=== PATIENT | female | born 1990 | race Caucasian/White ===

== ENCOUNTER 2017-03-04 17:37 | Emergency (ER) | payer OTHER ==
[~2017-03-04] VITALS: Ht 157.5 cm; Wt 46.1 kg
[2017-03-04 17:59] VITALS: TEMP 37; Ht 157.5 cm; Wt 46.1 kg
[2017-03-04] MEDS ORDERED: PANADOL PO (18:39)
--- NOTE | 2017-03-04 18:41 | EMERGENCY ROOM VISIT NOTE ---
ED Visit Note First contact with patient: 18:09 CHIEF COMPLAINT: test HISTORY OF PRESENT ILLNESS: This 26-year-old female patient presents to the emergency department requesting a test. The patient states her period is approximately 2 weeks late. She does have a Copper IUD which she has had for approximately 3-1/2 years. The patient states she took a home test, was uncertain if it tested positive or if there may have been a problem with the test. The patient believes her last menstrual period may have started on approximately January 11. She states she does have abnormal period intervals consistently. Last week, the patient did experience some mild pelvic pain, constipation, and dizziness. She states she is not experiencing these symptoms now. The patient denies any abnormal vaginal bleeding, discharge, urinary complaints, fever, chills, nausea, vomiting. She does have 3 living children, and denies any miscarriages or abortions. The patient states she does not feel like she felt with her previous pregnancies. REVIEW OF SYSTEMS: A 10 system review of systems was performed with positives and pertinent negatives listed in the history of present illness. All other systems were reviewed and are negative. ALLERGIES: None MEDICATIONS: None PMH: None SOCIAL HISTORY: Lives locally with family. She denies drug, alcohol, tobacco use. PHYSICAL EXAM: VITALS: Vitals are noted on the nurse's note and reviewed by myself. Vital signs stable. GENERAL: This is a 26-year-old female, in no acute distress, nondiaphoretic, well-developed well-nourished. SKIN: The skin was without rashes, erythema, edema, or bruising. There is no tenting of the skin. Capillary reflex less than 2 seconds. NECK: Supple without nuchal rigidity. No lymphadenopathy. No thyromegaly. Cervical spine is nontender. No JVD. HEART: Regular rate and rhythm without murmurs gallops or rubs. LUNGS: Clear to auscultation bilaterally without wheezes, rales or rhonchi. No dullness to percussion. No retractions or accessory muscle use. ABDOMEN: Positive bowel sounds x 4. Normal tympanic percussion. Soft, nontender, without masses or organomegaly. Martinez sign negative. No guarding or rebound tenderness. MUSCULOSKELETAL: No muscle atrophy, erythema, or edema noted. Full range of motion without joint tenderness in all extremities. No tenderness to palpation. Normal gait. Strength 5/5 throughout. NEURO: Patient was alert and oriented to person place and time. Normal sensation to light and sharp touch. No focal neurological deficits. EMERGENCY DEPARTMENT COURSE: The patient was seen and evaluated as above. Because of her uncertain home test, we did elect to perform a urine test here in the emergency department. This was negative. The urinalysis did not show suspicions for urinary tract infection. I discussed findings with the patient, and she is comfortable with discharge. I did offer to perform lab works for quantitative hCG, and patient declines at this time. I encouraged the patient to follow-up with her clam grader if she does not begin to have bleeding in the next 1-2 weeks. The patient was discharged home in good condition. I attest that I have personally reviewed the patient's current medication list. Patient was found to have normal blood pressure on screening and does not require follow-up. DIFFERENTIAL DIAGNOSIS: Amenorrhea, intrauterine , ectopic , ovarian cyst, uterine fibroid, malignancy, and others DIAGNOSIS: Amenorrhea DISCHARGE INSTRUCTIONS & TREATMENT: Seen in the emergency department today regarding amenorrhea. There was a concern that he could have been , however our test in the emergency department was negative. Urinalysis also did not show of a urinary tract infection. As discussed, having in IUD can cause amenorrhea or abnormal periods. If you do not get your regular bleeding in another 1-2 weeks, you should follow-up with your clam grader. An IUD can increase the risk for ectopic . So if you begin experiencing symptoms of including ongoing amenorrhea, abdominal pain , nausea, vomiting, or other associated symptoms, you should return to the emergency department. Current/Historical Medications Scheduled [Panadol], 1 TAB PO PRN UD Allergies Coded Allergies: No Known Allergies (Unverified , 03/04/17) Vital Signs Date Time Temp Pulse Resp B/P (MAP) Pulse Ox O2 Delivery O2 Flow Rate FiO2 03/04/17 18:59 78 16 103/57 100 03/04/17 17:59 37.0 92 18 118/79 98 Room Air Laboratory Results Test 03/04/17 18:36 Departure Information Impression Primary Impression: Amenorrhea Dispostion Home / Self-Care Condition GOOD Referrals No Doctor, Assigned (PCP) Patient Instructions Control IUD, ED Amenorrhea, My [facility] Additional Instructions Seen in the emergency department today regarding amenorrhea. There was a concern that he could have been , however our test in the emergency department was negative. Urinalysis also did not show of a urinary tract infection. As discussed, having in IUD can cause amenorrhea or abnormal periods. If you do not get your regular bleeding in another 1-2 weeks, you should follow-up with your clam grader. An IUD can increase the risk for ectopic . So if you begin experiencing symptoms of including ongoing amenorrhea, abdominal pain , nausea, vomiting, or other associated symptoms, you should return to the emergency department.
[2017-03-04 18:59] VITALS: BP 103/57; PULSE 78; O2SAT 100
== END 2017-03-04 19:00 | disposition home or self-care (01) ==
LOC: C.EDB 17:41 → C.EDD 19:00
DX: N91.2 Amenorrhea, unspecified (principal)

== ENCOUNTER → 2017-04-24 | Outpatient (CLI) | payer OTHER ==
[~2017-04-24] MED LIST: PANADOL PO
--- NOTE | 2017-04-24 10:10 | DIAGNOSTIC IMAGING REPORT ---
PELVIC COMPLETE NON OB CLINICAL HISTORY: 26 years-old Female presenting with ABN UTERINE BLEEDINGNEEDS FEMALE TECH, , 04/04/2017, intrauterine device in place. TECHNIQUE: Real-time grayscale and color and spectral Doppler ultrasound imaging of the pelvis was performed using a transabdominal probe. COMPARISON: None. FINDINGS: Uterus: An intrauterine device is appropriately positioned at the uterine fundus.. Anteverted. The uterus measures 8.9 x 5.2 x 4.0 cm. Endometrial stripe measures 5 mm in thickness. Endometrium normal-appearing. Cervix contains a nabothian cyst. Right adnexa: Right ovary contains numerous follicles (10 on a single image, the largest 7 mm). Right ovary measures 4.3 x 4.5 x 2.2 cm. Normal color Doppler flow and arterial and venous waveforms within the ovarian parenchyma. Left adnexa: Left ovary contains numerous follicles (12 on a single image, the largest 15 mm). Left ovary measures 5.6 x 3.8 x 2.8 cm. Normal color Doppler flow and arterial and venous waveforms within the ovarian parenchyma. Other: No free fluid. IMPRESSION: 1. Appropriately positioned intrauterine device. 2. No abnormality of the endometrium allowing for transabdominal technique. 3. No ovarian torsion. Electronically signed by: Flynn Craft M.D. 04/24/2017 10:09 AM Dictated Date/Time: 04/24/2017 10:06 AM
== END | disposition home or self-care (01) ==
LOC: C.ULTRBC 08:39
PROVIDERS: ATTEND Family Medicine
DX: N93.9 Abnormal uterine and vaginal bleeding, unspecified (principal); Z97.5 Presence of (intrauterine) contraceptive device